=== PATIENT | male | born 1990 | race Caucasian/White ===

== ENCOUNTER 2017-10-17 13:32 | Emergency (ER) | payer OTHER ==
[~2017-10-17] VITALS: Ht 170.2 cm; Wt 75.0 kg
[2017-10-17 15:50] VITALS: BP 142/87
== END 2017-10-17 15:50 | disposition home or self-care (01) ==
LOC: EMS 13:32
DX: K02.9 Dental caries, unspecified (principal)
CPT/HCPCS: 99283

== ENCOUNTER 2020-03-26 17:02 | Emergency (ER) | payer OTHER ==
[~2020-03-26] VITALS: Ht 167.6 cm; Wt 77.3 kg
[2020-03-26 17:05] VITALS: BP 149/98
== END 2020-03-26 18:11 | disposition home or self-care (01) ==
LOC: EMS 17:02
DX: Z20.828 Contact with and (suspected) exposure to other viral communicable diseases (principal)
CPT/HCPCS: 99283; U0003